=== PATIENT | female | born 1970 | race African-American/Black ===

== ENCOUNTER → 2017-03-14 | Outpatient (CLI) | payer OTHER ==
--- NOTE | ~2017-03-14 | CR181 ---
[facility] A Service of [facility] RADIOLOGY TEXT RESULTS PATIENT: REJI CAST LOCATION: [facility] #: [id number] : 72 UNIT #: [id number] AGE: [address]: Corbin Bean MD SEX: F ORDER DR: [id number] [facility] [address]. [place], [place] [address] [id number] O MR#: [id number] Acc #: [id number] NAME: REJI CAST : 1970 SEX: F STUDY DATE/TIME: 03/14/2017 18:28 UNIT: [facility] ROOM: STUDY DESCRIPTION: CR Lumbar Spine 2 or 3 Views Attending Physician: Corbin Bean M.D. Ordering Physician: Corbin Bean M.D. Primary Care Physician: Suma Klein M.D. MEDICAL IMAGING REPORT This report is preliminary unless electronic signature is present EXAM Lumbar spine series 03/14/2017 HISTORY A 46-year-old female complaining of chronic low back pain, present for about 1 year. TECHNIQUE Three-view lumbar spine series. FINDINGS The exam shows L5 spondylolysis with grade 2 anterolisthesis of L5 on S1. There is marked degenerative disc space narrowing and degenerative facet arthropathy at this level. Above L5, the lumbar spine appears negative. Disc spaces and lumbar vertebral alignment are within normal limits. IMPRESSION L5 spondylolysis with grade 2 anterolisthesis and advanced degenerative disc and facet arthropathy at L5-S1. Dictated by... Hari Lopez M.D. THIS IS AN ELECTRONICALLY VERIFIED REPORT Hari Lopez M.D. at 03/15/2017 12:52 PM EVA/kareem TD: 03/15/2017 12:25 JOB #: [id number] [facility] A Service of [facility] RADIOLOGY TEXT RESULTS PATIENT: REJI CAST LOCATION: [facility] #: [id number] : 72 UNIT #: [id number] AGE: [address]: Corbin Bean MD SEX: F ORDER DR: MEDICAL IMAGING REPORT Page 1 of 1 COPY
--- NOTE | ~2017-03-14 | CR172 ---
[facility] A Service of [facility] RADIOLOGY TEXT RESULTS PATIENT: REJI CAST LOCATION: [facility] : 72 UNIT #: [id number] AGE: [address]: Corbin Bean MD SEX: F ORDER DR: [id number] [facility] [address] [place], [place] [address] [id number] O MR#: [id number] Acc #: [id number] NAME: REJI CAST : 1970 SEX: F STUDY DATE/TIME: 03/14/2017 18:41 UNIT: [facility] ROOM: STUDY DESCRIPTION: CR Knee 3 Views Lt Attending Physician: Corbin Bean M.D. Ordering Physician: Corbin Bean M.D. Primary Care Physician: Suma Klein M.D. MEDICAL IMAGING REPORT This report is preliminary unless electronic signature is present EXAM Left knee series 03/14/2017 HISTORY A 46-year-old female complaining of 1-year history of left knee pain beginning while exercising. TECHNIQUE Three-view left knee series. FINDINGS No acute or chronic fracture deformity. Moderately severe tricompartment degenerative arthropathy with predominantly medial and patellofemoral joint space narrowing. Small knee joint effusion. IMPRESSION 1. No acute osseous abnormality. 2. Moderately severe degenerative arthropathy with medial and patellofemoral joint space narrowing. 3. Small joint effusion. Dictated by... Hari Lopez M.D. THIS IS AN ELECTRONICALLY VERIFIED REPORT Hari Lopez M.D. at 03/15/2017 12:52 PM EVA/kareem TD: 03/15/2017 12:29 JOB #: [id number] [facility] A Service [facility] RADIOLOGY TEXT RESULTS PATIENT: ERJI CAST LOCATION: [facility] : 72 UNIT #: [id number] AGE: [address]: Corbin Bean MD SEX: F ORDER DR: MEDICAL IMAGING REPORT Page 1 of 1 COPY
== END | disposition home or self-care (01) ==
LOC: CRAD 18:02
DX: M54.5 Low back pain (principal); M25.562 Pain in left knee; M25.561 Pain in right knee; E66.01 Morbid (severe) obesity due to excess calories; M43.16 Spondylolisthesis, lumbar region; M46.97 Unspecified inflammatory spondylopathy, lumbosacral region; M25.462 Effusion, left knee; M17.12 Unilateral primary osteoarthritis, left knee; M51.36 Other intervertebral disc degeneration, lumbar region
CPT/HCPCS: 72100; 73562